=== PATIENT | male | born 1945 | race Caucasian/White ===

== ENCOUNTER 2018-09-12 02:35 | Observation (INO) ==
--- NOTE | 2018-09-12 03:06 | ERNOTE ---
Dyspnea - General Presenting Symptoms: shortness of breath Time Seen by Provider: 09/12/18 02:54 Source: patient Exam Limitations: no limitations - Immun/Allergies/Home Medications Immunizations: IMMUNIZATION HX Immunizations Up to Date Yes History of Influenza Vaccine Yes Hx Pneumococcal Vaccination Yes Allergies/Adverse Reactions: Allergies No Known Allergies Allergy (Verified 09/12/18 11:01) Home Medications: HOME MEDICATIONS traZODone HCL [Desyrel] 100 mg PO HS 05/22/14 [Last Taken 05/21/14 20:00 100 mg] Budesonide/Formoterol Fumarate [Symbicort 160-4.5 Mcg Inhaler] 2 puff INHALATION BID 01/07/18 [Last Taken Unknown] Carvedilol [Coreg] 25 mg PO BID 01/07/18 [Last Taken Unknown] Doxazosin Mesylate [Cardura] 1 mg PO DAILY 01/07/18 [Last Taken Unknown] Furosemide 80 mg PO DAILY 08/18/18 [Last Taken Unknown] Rifampin [Rifadin] 300 mg PO Q12H 08/18/18 [Last Taken Unknown] ALPRAZolam [Xanax] 0.5 mg PO BID PRN 08/28/18 [Last Taken Unknown] Gabapentin [Neurontin] 600 mg PO TID 08/28/18 [Last Taken Unknown] Multi-Day Plus Minerals Tablet 1 tab PO DAILY 08/28/18 [Last Taken Unknown] Acetaminophen [Tylenol] 650 mg PO Q6H PRN 09/12/18 [Last Taken Unknown] Ciprofloxacin HCl 500 mg PO BID 09/12/18 [Last Taken Unknown] Clindamycin HCl [Cleocin HCl] 300 mg PO BID 09/12/18 [Last Taken Unknown] L.acidoph,Paracasei, B.lactis [Probiotic] 1 ea PO DAILY 09/12/18 [Last Taken Unknown] Melatonin 3 mg PO HS 09/12/18 [Last Taken Unknown] Saccharomyces Boulardii [Florastor] 250 mg PO DAILY 09/12/18 [Last Taken Unknown] Warfarin Sodium 7 mg PO DAILY 09/12/18 [Last Taken Unknown] oxyCODONE HCL/ACETAMINOPHEN [Percocet 5 MG/325 MG] 1 - 2 tab PO Q4H PRN 09/12/18 [Last Taken Unknown] - History of Present Illness Narrative: pt states that he has been a little more short of breath for a few days. Tonight he was going to sleep and couldn't sleep because of dyspnea. He recently had a knee replacement (June) and then revision due to infection mid July. He is still taking antibiotics and warfarin. Severity: moderate Treatment SOFTWARE SUPPORT ENGINEER: by patient Initiating event: Reports: unknown Frequency of episodes: Reports: occassional episodes Modifying Factors - (Improves): Reports: oxygen Review of Systems - Review of Systems Constitutional: Absent: recent illness, fever EYE: Absent: vision changes ENT: Absent: nose congestion, nasal drainage Respiratory: Present: shortness of breath, cough Cardiology: Present: chest pain Gastrointestinal/Abdominal: Absent: nausea, vomiting Genitourinary: Present: frequency. Absent: pain, dysuria Skin: Absent: rash, dryness Endocrine: Absent: excessive sweating, flushing Hematologic/Lymphatic: Present: easy bruising Medical History (Last Reviewed 09/12/18 @ 20:21 by Fabian Arreola DO) Afib COPD (chronic obstructive pulmonary disease) Calculus of kidney Cardiac arrhythmia Chronic kidney disease Cyst of kidney, acquired Depression Difficulty in walking Hydronephrosis Hyperlipidemia Hypertension Malignant melanoma of skin Malignant neoplasm of prostate Muscle weakness Obstructive sleep apnea Pleural effusion Total retinal detachment Surgical History: Surgical History (Last Reviewed 09/12/18 @ 20:21 by Fabian Arreola DO) H/O knee surgery Family History: Family History (Last Reviewed 09/12/18 @ 20:21 by Fabian Arreola DO) Other No pertinent family history Social History: Preferred Language Pashto Do you have any scientology or No cultural preference? Smoking Status Former smoker Abuse History No History of abuse Psych History Hx of Depression,Currently on Meds (Last Updated 09/08/18 @ 15:30 by Joaquin Brown MD) No Social History Section defined Physical Exam - Physical Exam General Appearance: Present: wd/wn, alert, mild distress Head Exam: Present: normal inspection, no evidence of injury Neck: Present: normal inspection, nontender, supple Respiratory: Present: chest nontender, crackles - at the bases. Absent: wheezing Cardiovascular/Chest: Present: no murmur, tachycardia Gastrointestinal/Abdominal: Present: normal bowel sounds, nontender, nondistended Back Exam: Present: normal inspection, normal range of motion, no vertebral tenderness Extremity Exam: Present: normal inspection, normal range of motion, extremity edema - minimal Neurological Exam: Present: alert, oriented, normal mood/affect, no motor/sensory deficits Skin Exam: Present: normal color, warm/dry Lymphatic Exam: Present: no adenopathy Progress - Results and Orders Patient's Lab Results:: I have reviewed the patient's lab results. - Vital Signs Patient's Vital Signs:: I have reviewed the patient's vital signs. Vital Signs: Vital Signs 09/12/18 02:44 Temperature 36.4 C Pulse Rate 105 H Respiratory Rate 25 H Blood Pressure 149/95 H O2 Sat by Pulse Oximetry 95 - EKG EKG #1 EKG: atrial fibrillation - with normal ventricular response, no ST T wave changes EKG read: Interp. by me - X-Ray X-Ray #1 X-Ray: chest Interpretation: Reviewed by me X-ray Comments: IMPRESSION: 1. Interval improvement in lung inflation, improving basilar opacities presumably atelectasis although potential pneumonia would be difficult to exclude. 2. Increased vascular and peripheral linear lung markings. Consider pulmonary vascular congestion/edema. 3. Stable cardiomegaly. Electronically signed by Cezar Salvador M.D. - Progress/Reassessment Chief Complaint: Dyspnea Progress:: Improved Progress Note-Subjective: 09/12/18 05:[address] Aaron and she agrees with observation admission. Departure Clinical Impression: CHF (congestive heart failure) Qualifiers: Heart failure type: systolic Heart failure chronicity: acute on chronic Qualified Code(s): I50.23 - Acute on chronic systolic (congestive) heart failure Pulmonary edema Qualifiers: Chronicity: acute Qualified Code(s): J81.0 - Acute pulmonary edema - Departure Disposition: Still a patient Condition: Good
[2018-09-12 03:10] LABS: Hematocrit 31.2 % (42.0-52.0); Mean Cell Volume 102.6 fl (78-100); Mean Corpuscular Hemoglobin 32.9 pg (27-31); Mean Corpuscular Hgb Conc 32.1 g/dl (32-36); Mean Platelet Volume 9.3 fl (8-11.3); Neutrophil # 2.4 K/mm3 (1.3-6.0); Neutrophil % 48.5 % (42-75.0); Platelet Count 251 K/mm3 (150-450); Red Blood Count 3.04 M/mm3 (4.7-6.0); Red Cell Distribution Width 15.2 % (11.5-14.0); White Blood Count 4.9 K/mm3 (4.0-10.5)
[2018-09-12 03:20] LABS: INR 1.2 INR (0.90-1.10)
[2018-09-12 03:32] LABS: AST 17 U/L (0-48); Albumin * 2.6 gm/dl (3.4-5.0); Alkaline Phosphatase * 62 U/L (50-170); Anion Gap 14.3 mmol/L (6.8-13.8); BNP * 3247 pg/mL (5-350); BUN/Creatinine Ratio 10.6 (9.0-21.6); Bilirubin, Total 0.4 mg/dL (0.0-1.1); Blood Urea Nitrogen 18 mg/dL (6-23); Ca. Corrected For Albumin 10.3 mg/dL (8.4-10.2); Calcium * 9.5 mg/dL (7.9-10.9); Carbon Dioxide 30.8 mmol/L (24-32.6); Chloride 101 mmol/L (97-106); Glucose * 113 mg/dL (70-110); Potassium 3.1 mmol/L (3.4-4.6); Sodium 143 mmol/L (132-142); Total Protein 6.8 gm/dL (6.2-8.2); Troponin I Less than 0.017 ng/mL (0.00-0.10)
[2018-09-12 03:42] LABS: ALT 4 U/L (19-67)
[2018-09-12] MEDS ORDERED: FUROSEMIDE 10 MG/ML VIAL IV ONE ×2 (04:43→09:45)
[2018-09-12] MEDS ORDERED: oxyCODONE HCL/ACETAMINOPHEN 1 TAB TABLET PO PRN (09:19)
[2018-09-12] MEDS ORDERED: ALPRAZolam 0.5 MG TABLET PO PRN (09:19)
[2018-09-12] MEDS ORDERED: ALBUTEROL SULFATE/IPRATROPIUM 3 ML NEBU IH SCH (09:30)
[2018-09-12] MEDS ORDERED: RANITIDINE HCL 15 MG/ML BTL PO SCH (10:15)
[2018-09-12] MEDS ORDERED: FAMOTIDINE 20 MG TABLET PO SCH (10:30)
--- NOTE | 2018-09-12 10:33 | HP ---
Chief Complaint - Chief Complaint Date of Service: 09/12/18 Time of Service: 10:09 Chief Complaint: I couldn't get my breath. History of Present Illness: Patient is 72-year-old white male who was recently discharged from the half-way where he was receiving IV antibiotics for replaced infected hardware in his left knee. He had been doing well prior to discharge, but believes he went home and drank much more water than what he had been drinking in the half-way and became volume overloaded. He does have a past medical history significant for lower extremity edema, pulmonary edema but no official CHF diagnosis. Is normally seen the [facility], but lives locally so he came to our hospital. He denies any PND or orthopnea, no chest pain or acute onset shortness of breath. He states his lower extremity edema is slightly worse but equal bilaterally. He denies any fevers or chills, nausea or vomiting, wheezing or coughing. He does have a history of COPD, but does not believe that this is causing his shortness of breath. He does complain of a great deal of heartburn and indigestion which seems to occur shortly after he takes his p.o. antibiotics. He was given 40 mg dose of IV Lasix in the ER for which he said he did not diurese any more than usual. He still feels short of breath at time that I saw him. He typically takes 40 mg of Lasix p.o. daily. Chest x-ray in the ER did show pulmonary edema and findings of an elevated BMP consistent with CHF. He was admitted for observation due to his shortness of breath and pulmonary edema with a goal to diuresis. I do anticipate him being here no more than one midnight, unless his condition would worsen. His workup for CHF including his echo can be done on an outpatient basis. Also believe some of his issue is his COPD so we will do scheduled DuoNeb treatments while he is here. We will consider doing some p.o. steroids as well. Otherwise no change in his medications other than trial with a higher dose of IV Lasix of 80 mg Medical History (Last Reviewed 09/12/18 @ 02:49 by Leeann Castellanos RN) Afib COPD (chronic obstructive pulmonary disease) Calculus of kidney Cardiac arrhythmia Chronic kidney disease Cyst of kidney, acquired Depression Difficulty in walking Hydronephrosis Hyperlipidemia Hypertension Malignant melanoma of skin Malignant neoplasm of prostate Muscle weakness Obstructive sleep apnea Pleural effusion Total retinal detachment Surgical History: Surgical History (Last Reviewed 09/12/18 @ 02:49 by Leeann Castellanos RN) H/O knee surgery Family History: Family History (Last Reviewed 09/12/18 @ 02:49 by Leeann Castellanos RN) Other No pertinent family history Social History: Preferred Language Algerian Do you have any mormonism or No cultural preference? Smoking Status Former smoker Abuse History No History of abuse Psych History Hx of Depression,Currently on Meds (Last Updated 09/08/18 @ 15:30 by Joaquin Brown MD) No Social History Section defined Review Of Systems (GEN) - Review of Systems Generalized/Overall Review: Present: Weakness. Absent: Chills, Fever EENTM: Present: No Symptoms Reported Respiratory: Present: Shortness of Breath. Absent: Cough, Orthopnea, Wheezing Cardiac: Present: Edema, Palpitations. Absent: Chest Pain, Syncope Abdominal: Absent: Nausea, Vomiting, Abdominal Pain, Constipation Genitourinary: Present: No Symptoms Reported Musculoskeletal: Present: Joint Pain, Back Pain Neurological: Present: Weakness Skin: Present: No Symptoms Reported Endocrine: Present: No Symptoms Reported Immunizations: IMMUNIZATION HX Immunizations Up to Date Yes History of Influenza Vaccine Yes Hx Pneumococcal Vaccination Yes Allergies/Adverse Reactions: Allergies Allergy/AdvReac Type Severity Reaction Status Date / Time No Known Allergies Allergy Verified 09/12/18 02:49 Home Medications: HOME MEDICATIONS traZODone HCL [Desyrel] 100 mg PO HS 05/22/14 [Last Taken 05/21/14 20:00 100 mg] Budesonide/Formoterol Fumarate [Symbicort 160-4.5 Mcg Inhaler] 2 puff INHALATION BID 01/07/18 [Last Taken Unknown] Carvedilol [Coreg] 25 mg PO BID 01/07/18 [Last Taken Unknown] Doxazosin Mesylate [Cardura] 1 mg PO DAILY 01/07/18 [Last Taken Unknown] Furosemide 80 mg PO DAILY 08/18/18 [Last Taken Unknown] Rifampin [Rifadin] 300 mg PO Q12H 08/18/18 [Last Taken Unknown] ALPRAZolam [Xanax] 0.5 mg PO BID PRN 08/28/18 [Last Taken Unknown] Gabapentin [Neurontin] 600 mg PO TID 08/28/18 [Last Taken Unknown] Multi-Day Plus Minerals Tablet 1 tab PO DAILY 08/28/18 [Last Taken Unknown] Acetaminophen [Tylenol] 650 mg PO Q6H PRN 09/12/18 [Last Taken Unknown] Ciprofloxacin HCl 500 mg PO BID 09/12/18 [Last Taken Unknown] Clindamycin HCl [Cleocin HCl] 300 mg PO BID 09/12/18 [Last Taken Unknown] L.acidoph,Paracasei, B.lactis [Probiotic] 1 ea PO DAILY 09/12/18 [Last Taken Unknown] Melatonin 3 mg PO HS 09/12/18 [Last Taken Unknown] Saccharomyces Boulardii [Florastor] 250 mg PO DAILY 09/12/18 [Last Taken Unknown] Warfarin Sodium 7 mg PO DAILY 09/12/18 [Last Taken Unknown] oxyCODONE HCL/ACETAMINOPHEN [Percocet 5 MG/325 MG] 1 - 2 tab PO Q4H PRN 09/12/18 [Last Taken Unknown] Exam - Exam Vital Signs: Vital Signs - Last Taken Temp 36.4 C 09/12/18 02:44 Pulse 103 H 09/12/18 06:51 Resp 15 09/12/18 06:51 BP 148/102 H 09/12/18 05:33 Pulse Ox 95 09/12/18 06:51 Constitutional: Present: Alert, Oriented x3, Cooperative, Mild distress, Obese ENT Exam: Present: hearing grossly normal Eye Exam: bilateral eye: normal inspection, PERRL, EOMI Neck: Present: supple Back Exam: Present: normal inspection, no CVA tenderness Respiratory: Present: lungs clear, normal breath sounds, respiratory distress, accessory muscle use, expiration (prolonged) Cardiovascular/Chest: Present: no murmur, tachycardia, irregularly irregular Peripheral Pulses: dorsalis-pedis (R): 1+, dorsalis-pedis (L): 1+ Abdomen: Present: Normal bowel sounds, soft, nontender, obese, other - 1cm umbilical hernia - no bowel incarceration /Rectal: Present: Exam deferred Extremity: Present: lower extremity edema - 2-3+ edema, with stasis changes keshia that is only slightly worse than last week in the NH. 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 as tested, normal mood/affect, oriented x 3 Appearance: Present: appropriate appearance, appropriate insight, disheveled Eye contact: Present: cooperative, good eye contact, normal speech Thoughts: Present: normal thought pattern, no apparent hallucination Diagnostic Studies: Abnormal Lab Results 09/12/18 09/12/18 09/12/18 Range/Units 03:00 03:00 03:00 RBC 3.04 L (4.7-6.0) M/mm3 Hgb 10.0 L (13.5-18.0) gm/dL Hct 31.2 L (42.0-52.0) % MCV 102.6 H (78-100) fl MCH 32.9 H (27-31) pg RDW 15.2 H (11.5-14.0) % Immature Gran % (Auto) 1.00 H (0.001-0.429) % Immature Gran # (Auto) 0.05 H (0.000-0.0310) K/mm3 Monocytes % 16.4 H (0.0-9) % Eosinophils % 6.3 H (0.0-3.0) % Lymphocytes # 1.33 L (1.5-3.5) k/mm3 PT (9.0-11.0) Seconds INR (Anticoag Therapy) (0.90-1.10) INR D-Dimer 4.20 H (0.19-0.49) ug/mL Sodium 143 H (132-142) mmol/L Plasma Sodium 143 H (130-142) mmol/L Potassium 3.1 L D (3.4-4.6) mmol/L Anion Gap 14.3 H (6.8-13.8) mmol/L Creatinine 1.70 H (0.4-1.4) mg/dL Est GFR (Non-Af Amer) 43 L (60-130) mL/min Random Glucose 113 H (70-110) mg/dL Calcium Adj for Albumin 10.3 H (8.4-10.2) mg/dL ALT 4 L (19-67) U/L B-Natriuretic Peptide 3247 H (5-350) pg/mL Albumin 2.6 L (3.4-5.0) gm/dl 09/12/18 Range/Units 03:00 RBC (4.7-6.0) M/mm3 Hgb (13.5-18.0) gm/dL Hct (42.0-52.0) % MCV (78-100) fl MCH (27-31) pg RDW (11.5-14.0) % Immature Gran % (Auto) (0.001-0.429) % Immature Gran # (Auto) (0.000-0.0310) K/mm3 Monocytes % (0.0-9) % Eosinophils % (0.0-3.0) % Lymphocytes # (1.5-3.5) k/mm3 PT 12.0 H (9.0-11.0) Seconds INR (Anticoag Therapy) 1.20 H (0.90-1.10) INR D-Dimer (0.19-0.49) ug/mL Sodium (132-142) mmol/L Plasma Sodium (130-142) mmol/L Potassium (3.4-4.6) mmol/L Anion Gap (6.8-13.8) mmol/L Creatinine (0.4-1.4) mg/dL Est GFR (Non-Af Amer) (60-130) mL/min Random Glucose (70-110) mg/dL Calcium Adj for Albumin (8.4-10.2) mg/dL ALT (19-67) U/L B-Natriuretic Peptide (5-350) pg/mL Albumin (3.4-5.0) gm/dl Laboratory Results WBC 4.9 K/mm3 (4.0-10.5) 09/12/18 03:00 RBC 3.04 M/mm3 (4.7-6.0) L 09/12/18 03:00 Hgb 10.0 gm/dL (13.5-18.0) L 09/12/18 03:00 Hct 31.2 % (42.0-52.0) L 09/12/18 03:00 MCV 102.6 fl (78-100) H 09/12/18 03:00 MCH 32.9 pg (27-31) H 09/12/18 03:00 MCHC 32.1 g/dl (32-36) 09/12/18 03:00 RDW 15.2 % (11.5-14.0) H 09/12/18 03:00 Plt Count 251 K/mm3 (150-450) 09/12/18 03:00 MPV 9.3 fl (8-11.3) 09/12/18 03:00 Immature Gran % (Auto) 1.00 % (0.001-0.429) H 09/12/18 03:00 Immature Gran # (Auto) 0.05 K/mm3 (0.000-0.0310) H 09/12/18 03:00 Neutrophils % 48.5 % (42-75.0) 09/12/18 03:00 Lymphocytes % 27.0 % (20-51) 09/12/18 03:00 Monocytes % 16.4 % (0.0-9) H 09/12/18 03:00 Eosinophils % 6.3 % (0.0-3.0) H 09/12/18 03:00 Basophils % 0.8 % (0.0-1.0) 09/12/18 03:00 Nucleated RBC % 0.0 k/mm3 (0-1) 09/12/18 03:00 Neutrophils # 2.4 K/mm3 (1.3-6.0) 09/12/18 03:00 Lymphocytes # 1.33 k/mm3 (1.5-3.5) L 09/12/18 03:00 Monocytes # 0.8 k/mm3 (0.0-1.0) 09/12/18 03:00 Eosinophils # 0.3 k/mm3 (0.0-0.7) 09/12/18 03:00 Absolute Basophils 0.0 k/mm3 (0.0-0.1) 09/12/18 03:00 PT 12.0 Seconds (9.0-11.0) H 09/12/18 03:00 INR (Anticoag Therapy) 1.20 INR (0.90-1.10) H 09/12/18 03:00 D-Dimer 4.20 ug/mL (0.19-0.49) H 09/12/18 03:00 Sodium 143 mmol/L (132-142) H 09/12/18 03:00 Plasma Sodium 143 mmol/L (130-142) H 09/12/18 03:00 Potassium 3.1 mmol/L (3.4-4.6) L D 09/12/18 03:00 Chloride 101 mmol/L (97-106) 09/12/18 03:00 Carbon Dioxide 30.8 mmol/L (24-32.6) 09/12/18 03:00 Anion Gap 14.3 mmol/L (6.8-13.8) H 09/12/18 03:00 BUN 18 mg/dL (6-23) 09/12/18 03:00 Creatinine 1.70 mg/dL (0.4-1.4) H 09/12/18 03:00 Est GFR (Non-Af Amer) 43 mL/min (60-130) L 09/12/18 03:00 BUN/Creatinine Ratio 10.6 (9.0-21.6) 09/12/18 03:00 Random Glucose 113 mg/dL (70-110) H 09/12/18 03:00 Calcium 9.5 mg/dL (7.9-10.9) 09/12/18 03:00 Calcium Adj for Albumin 10.3 mg/dL (8.4-10.2) H 09/12/18 03:00 Total Bilirubin 0.4 mg/dL (0.0-1.1) 09/12/18 03:00 AST 17 U/L (0-48) 09/12/18 03:00 ALT 4 U/L (19-67) L 09/12/18 03:00 Alkaline Phosphatase 62 U/L (50-170) 09/12/18 03:00 Troponin I Less than 0.017 ng/mL (0.00-0.10) 09/12/18 03:00 B-Natriuretic Peptide 3247 pg/mL (5-350) H 09/12/18 03:00 Total Protein 6.8 gm/dL (6.2-8.2) 09/12/18 03:00 Albumin 2.6 gm/dl (3.4-5.0) L 09/12/18 03:00 Assessment/Plan - Assessment/Plan (1) COPD (chronic obstructive pulmonary disease) Assessment: The patient did have findings of pulmonary edema on his chest x-ray, his lung exam and appearance looks more to be an acute exacerbation of chronic COPD. Symptoms are mild so we will just do scheduled DuoNeb for now and reassess as to whether steroids might be needed. Problem: Acute Qualifiers: COPD type: COPD with acute exacerbation Qualified Code(s): J44.1 - Chronic obstructive pulmonary disease with (acute) exacerbation (2) Atrial fibrillation Assessment: His atrial fibrillation shows fairly good rate control, though his heart rate is in the low 100s. This could be due to his COPD or this pulmonary edema so we will treat those items first. If there is no improvement will consider working on cardiac rate control. Problem: Chronic Qualifiers: (3) Pulmonary edema Assessment: For his pulmonary edema we will do a trial with a higher dose of IV Lasix to see if this helps his symptoms. He is already on 80 mg of Lasix p.o. daily at home, so would consider adding metolazone to his Lasix for better diuretic effect. Problem: Acute (4) Infected hardware in left lower extremity Assessment: Due to his recent infection we will continue his Cipro and clindamycin, though will consider stopping his clindamycin as this was started more for his PICC line infection which appears to be resolved after removing his PICC line. Due to the heartburn that seems to be associated with the antibiotics will give her ranitidine 150 mg p.o. twice daily 30 minutes prior to taking his antibiotics. Problem: Acute Qualifiers: (5) Discharge planning issues Assessment: I do anticipate patient being able be discharged in the morning, unless his condition should decompensate. Problem: Acute
[2018-09-12] MEDS: ACETAMINOPHEN 325 MG TABLET PO PRN ×2 (10:37→17:19)
[2018-09-12] MEDS: FLUTICASONE PROPION/SALMETEROL 14 PUFF DISK.W.DEV IH SCH ×2 (10:39→21:00)
[2018-09-12] MEDS: CARVEDILOL 25 MG TABLET PO SCH ×2 (10:39→21:02)
[2018-09-12] MEDS: LACTOBACILLUS ACIDOPHILUS 100 CAP BTL PO SCH (10:39)
[2018-09-12] MEDS: DOXAZOSIN MESYLATE 2 MG TABLET PO SCH (10:39)
[2018-09-12] MEDS: MULTIVITAMINS 1 CAP CAPSULE PO SCH (10:40)
[2018-09-12] MEDS: GABAPENTIN 600 MG TABLET PO SCH ×3 (10:40→21:03)
[2018-09-12] MEDS: SACCHAROMYCES BOULARDII 250 MG CAPSULE PO SCH (10:40)
[2018-09-12] MEDS: CIPROFLOXACIN HCL 500 MG TABLET PO SCH ×2 (11:45→21:01)
[2018-09-12] MEDS: ENOXAPARIN SODIUM 80 MG/0.8 ML DISP.SYRIN SC SCH ×2 (11:46→21:00)
[2018-09-12] MEDS: CLINDAMYCIN HCL 150 MG CAPSULE PO SCH ×2 (11:48→21:01)
[2018-09-12] MEDS: ALBUTEROL SULFATE/IPRATROPIUM 3 ML NEBU IH SCH ×2 (12:45→18:14)
[2018-09-12] MEDS: RIFAMPIN 300 MG CAPSULE PO SCH ×2 (12:54→21:01)
[2018-09-12] MEDS ORDERED: WARFARIN SODIUM 6 MG, WARFARIN SODIUM 1 MG PO SCH ×2 (17:00)
[2018-09-12] MEDS ORDERED: WARFARIN SODIUM 1 MG TABLET PO SCH (17:00)
[2018-09-12] MEDS: FAMOTIDINE 20 MG TABLET PO SCH (20:06)
[2018-09-12] MEDS ORDERED: traZODone HCL 50 MG TABLET PO SCH (21:00)
[2018-09-12] MEDS ORDERED: MELATONIN 3,000 MCG TABLET PO SCH (21:00)
[2018-09-13] MEDS: ALBUTEROL SULFATE/IPRATROPIUM 3 ML NEBU IH SCH ×3 (00:03→06:00)
[2018-09-13 05:47] LABS: Prothrombin Time (Patient) 12.6 Seconds (9.0-11.0)
[2018-09-13 05:48] LABS: INR 1.26 INR (0.90-1.10)
[2018-09-13 07:01] LABS: Anion Gap 9.6 mmol/L (6.8-13.8); Calcium * 8.5 mg/dL (7.9-10.9); Carbon Dioxide 32.7 mmol/L (24-32.6); Estimated Creat Clear 45.1; Potassium 3.3 mmol/L (3.4-4.6)
[2018-09-13] MEDS: GABAPENTIN 600 MG TABLET PO SCH (07:02)
--- NOTE | 2018-09-13 07:51 | DS ---
(1) COPD (chronic obstructive pulmonary disease) Problem: Acute Qualifiers: COPD type: COPD with acute exacerbation Qualified Code(s): J44.1 - Chronic obstructive pulmonary disease with (acute) exacerbation (2) Atrial fibrillation Problem: Chronic Qualifiers: (3) Pulmonary edema Problem: Acute Qualifiers: Chronicity: acute Qualified Code(s): J81.0 - Acute pulmonary edema (4) Infected hardware in left lower extremity Problem: Acute Qualifiers: (5) Discharge planning issues Problem: Acute Description of Stay: Pt. admitted for CHF due to diastolic dysfunction from COPD. Pt. was diuresed with IV lasix and placed on breathing treatments which reduced his edema and improved his breathing. His K was low at 3.1, but was 3.3 at time of discharge and he'll received PO KCL for a couple days to increase this to a normal range. He does have some CRF so will not do this continuously as he has not been on KCL in the past despite being on 80mg of lasix daily. CHF: improved. continue lasix at 80mg daily. COPD: continue breathing treatments at home at least for the next several days until f/u with PCP. For his left knee hardware infection he was continued on his cipro and clindamycin, though the clinda will be d/c'd at time of discharge as it was more for his picc line infection which appears to have resolved. For his Afib, he was continued on his warfarin, but his INR 1.26 so will increa se his warfarin to 8mg at time of discharge. He did receive lovenox at 1mg/kg bid dose while here. He can follow-up with his PCP within the week for monitoring of his INR/infection/K levels. Procedures Performed: none Results and Findings: Lab Pending Results 09/12/18 03:00: WBC 4.9, RBC 3.04 L, Hgb 10.0 L, Hct 31.2 L, MCV 102.6 H, MCH 32.9 H, MCHC 32.1, RDW 15.2 H, Plt Count 251, MPV 9.3, Immature Gran % (Auto) 1.00 H, Immature Gran # (Auto) 0.05 H, Neutrophils % 48.5, Lymphocytes % 27.0, Monocytes % 16.4 H, Eosinophils % 6.3 H, Basophils % 0.8, Nucleated RBC % 0.0, Neutrophils # 2.4, Lymphocytes # 1.33 L, Monocytes # 0.8, Eosinophils # 0.3, Absolute Basophils 0.0 09/12/18 03:00: Sodium 143 H, Plasma Sodium 143 H, Potassium 3.1 L D, Chloride 101, Carbon Dioxide 30.8, Anion Gap 14.3 H, BUN 18, Creatinine 1.70 H, Est GFR (Non-Af Amer) 43 L, BUN/Creatinine Ratio 10.6, Random Glucose 113 H, Calcium 9.5, Calcium Adj for Albumin 10.3 H, Total Bilirubin 0.4, AST 17, ALT 4 L, Alkaline Phosphatase 62, Troponin I Less than 0.017, B-Natriuretic Peptide 3247 H, Total Protein 6.8, Albumin 2.6 L 09/12/18 03:00: D-Dimer 4.20 H 09/12/18 03:00: PT 12.0 H, INR (Anticoag Therapy) 1.20 H 09/13/18 05:00: PT 12.6 H, INR (Anticoag Therapy) 1.26 H 09/13/18 06:45: Sodium 141, Plasma Sodium 141, Potassium 3.3 L, Chloride 102, Carbon Dioxide 32.7 H, Anion Gap 9.6, BUN 15, Creatinine 1.87 H, Est GFR (Non-Af Amer) 38 L, BUN/Creatinine Ratio 8.0 L, Random Glucose 129 H, Calcium 8.5 Discharge Location: Home Disposition: Home self-care Condition: Good Discharge Activity: Activity as tolerated Discharge Diet: Low salt Referrals: Alfredo Mcqueen MD [Primary Care Provider] - One Week Additional Patient Instructions (free text): -Please make TCM appointment unless care home discharge. Thank you! Shakila @ ext:[phone]. Prescriptions (Any new or edited meds): Albuterol Sulfate/Ipratropium [Duoneb 2.5-0.5MG/3ML Soln] 3 ml INHALATION Q6HRT #60 nebu Potassium Chloride [K-Dur] 20 meq PO BIDWM #4 tablet.sa Warfarin Sodium [Coumadin] 8 mg PO DAILY@1700 #30 tab Complete Home Medications List: Complete Home Medication List: traZODone HCL [Desyrel] 100 mg PO HS 05/22/14 Budesonide/Formoterol Fumarate [Symbicort 160-4.5 Mcg Inhaler] 2 puff INHALATION BID 01/07/18 Carvedilol [Coreg] 25 mg PO BID 01/07/18 Doxazosin Mesylate [Cardura] 1 mg PO DAILY 01/07/18 Furosemide 80 mg PO DAILY 08/18/18 Rifampin [Rifadin] 300 mg PO Q12H 08/18/18 ALPRAZolam [Xanax] 0.5 mg PO BID PRN 08/28/18 Gabapentin [Neurontin] 600 mg PO TID 08/28/18 Multi-Day Plus Minerals Tablet 1 tab PO DAILY 08/28/18 Acetaminophen [Tylenol] 650 mg PO Q6H PRN 09/12/18 Ciprofloxacin HCl 500 mg PO BID 09/12/18 L.acidoph,Paracasei, B.lactis [Probiotic] 1 ea PO DAILY 09/12/18 Melatonin 3 mg PO HS 09/12/18 Saccharomyces Boulardii [Florastor] 250 mg PO DAILY 09/12/18 Warfarin Sodium 7 mg PO DAILY 09/12/18 oxyCODONE HCL/ACETAMINOPHEN [Percocet 5 MG/325 MG] 1 - 2 tab PO Q4H PRN 09/12/18 Albuterol Sulfate/Ipratropium [Duoneb 2.5-0.5MG/3ML Soln] 3 ml INHALATION Q6HRT #60 nebu 09/13/18 Potassium Chloride [K-Dur] 20 meq PO BIDWM #4 tablet.sa 09/13/18 Warfarin Sodium [Coumadin] 8 mg PO DAILY@1700 #30 tab 09/13/18
[2018-09-13] MEDS: LACTOBACILLUS ACIDOPHILUS 100 CAP BTL PO SCH (08:50)
[2018-09-13] MEDS: SACCHAROMYCES BOULARDII 250 MG CAPSULE PO SCH (08:50)
[2018-09-13] MEDS: CLINDAMYCIN HCL 150 MG CAPSULE PO SCH (08:50)
[2018-09-13] MEDS: MULTIVITAMINS 1 CAP CAPSULE PO SCH (08:50)
[2018-09-13] MEDS: FAMOTIDINE 20 MG TABLET PO SCH (08:50)
[2018-09-13] MEDS: RIFAMPIN 300 MG CAPSULE PO SCH (08:50)
[2018-09-13] MEDS: CIPROFLOXACIN HCL 500 MG TABLET PO SCH (08:50)
[2018-09-13] MEDS: FLUTICASONE PROPION/SALMETEROL 14 PUFF DISK.W.DEV IH SCH (08:50)
[2018-09-13] MEDS: DOXAZOSIN MESYLATE 2 MG TABLET PO SCH (08:50)
[2018-09-13] MEDS: ENOXAPARIN SODIUM 80 MG/0.8 ML DISP.SYRIN SC SCH (08:50)
[2018-09-13] MEDS: CARVEDILOL 25 MG TABLET PO SCH (08:50)
[2018-09-13] MEDS ORDERED: POTASSIUM CHLORIDE 20 MEQ TABLET.SA PO SCH (09:00)
[2018-09-13 13:12] VITALS: BP 114/75
[2018-09-13] MEDS ORDERED: WARFARIN SODIUM 4 MG TABLET PO SCH (17:00)
== END 2018-09-13 13:11 | disposition home or self-care (01) ==
LOC: ER 02:35 → MS 02:35
PROVIDERS: ADMIT Family Medicine; ATTEND Family Medicine
DX: J44.1 Chronic obstructive pulmonary disease with (acute) exacerbation; J81.0 Acute pulmonary edema; I48.91 Unspecified atrial fibrillation; T84.7XXA Infection and inflammatory reaction due to other internal orthopedic prosthetic devices, implants and grafts, initial encounter
CPT/HCPCS: 36415; 71020; 71046; 80048; 80053; 83519; 83880; 84484; 85025; 85379; 85610; 87081; 93005; 94640; 94660; 94664; 94760; 96372; 96374; 96375; 99285; G0378